=== PATIENT | male | born 1945 | race African-American/Black ===

== ENCOUNTER 2021-03-08 23:58 | Inpatient (IN) | payer MEDICARE, OTHER ==
[~2021-03-08] VITALS: Ht 180.3 cm; Wt 99.8 kg
[~2021-03-08 23:58] MED LIST: LISINOPRIL; [UNRECOGNIZED DRUG - REMARK]
[2021-03-09] MEDS ORDERED: MORPHINE SULFATE 4 MG/ML CPJ (NOT FOR IM USE) IV STA (00:26)
[2021-03-09] MEDS ORDERED: ONDANSETRON HCL 4MG/2ML INJ IV STA (00:26)
[2021-03-09 01:00] LABS: HEMATOCRIT. 45.7 % (42.0-52.0); HEMOGLOBIN. 15.3 g/dL (14.0-18.0); MEAN CORPUSCULAR VOLUME 92.4 fL (80.0-94.0); MEAN PLATELET VOLUME 8.1 fl (7.4-10.4); PLATELET 367 x1000/uL (130-400); RED BLOOD CELL COUNT 4.95 mill/uL (4.7-6.1)
[2021-03-09 01:04] LABS: CHLORIDE 106 mEq/L (98-107)
[2021-03-09 01:08] LABS: ETHANOL BLOOD < 10 mg/dL
[2021-03-09 01:11] LABS: BETA HYDROXYBUTYRATE 0.3 mMol/L (0.0-0.3)
[2021-03-09 01:34] LABS: CLARITY URINE CLEAR (CLEAR); COLOR URINE YELLOW (YELLOW); KETONES URINE NEGATIVE (NEGATIVE); LEUKOCYTE ESTERASE URINE NEGATIVE (NEGATIVE); NITRITE URINE NEGATIVE (NEGATIVE); OCCULT BLOOD URINE NEGATIVE (NEGATIVE); PROTEIN URINE TRACE (NEGATIVE); SPECIFIC GRAVITY URINE 1.019 (1.005-1.030); UROBILINOGEN URINE 0.2 E.U./dL (0.2-1.0)
[2021-03-09 02:56] LABS: PLATELET ESTIMATE NORMAL
[2021-03-09] MEDS ORDERED: HYDROMORPHONE HCL/PF 2MG/ML CPJ IV PRN (08:15)
[2021-03-09] MEDS ORDERED: ACETAMINOPHEN 650MG SUPP PR PRN (08:15)
[2021-03-09] MEDS ORDERED: ONDANSETRON HCL 4MG/2ML INJ IV PRN (08:15)
[2021-03-09] MEDS ORDERED: DEXTROSE 50% WATER 50ML SYRINGE IV PRN (09:00)
[2021-03-09] MEDS: DEXT 5%/0.45% NACL 1000ML 1,000 ML IV SCH ×2 (09:19→21:40)
[2021-03-09] MEDS: ENOXAPARIN 40MG/0.4ML SYR SUBCUT SCH (09:20)
[2021-03-09] MEDS: BLOOD SUGAR DIAGNOSTIC STRIP TEST SCH ×3 (11:30→21:35)
[2021-03-09] MEDS: INSULIN LISPRO 100 UNITS/ML SUBCUT SCH ×3 (14:49→21:00)
[2021-03-09] MEDS ORDERED: NALOXONE HCL 0.4MG/ML VIAL IV PRN (19:45)
[2021-03-09 21:25] VITALS: BP 174/70
[2021-03-09] MEDS ORDERED: GLIP10TA10 PO (23:43)
[2021-03-09] MEDS ORDERED: POTA10CA42 PO (23:43)
[2021-03-09] MEDS ORDERED: SEMA0.25 SQ (23:43)
[2021-03-09] MEDS ORDERED: TRAZ-251 PO (23:43)
[2021-03-09] MEDS ORDERED: METO-539 PO (23:43)
[2021-03-09] MEDS ORDERED: ATOR10TA69 PO (23:43)
[2021-03-09] MEDS ORDERED: INSU100I24 SQ (23:43)
[2021-03-09] MEDS ORDERED: GABA-290 PO (23:43)
[2021-03-09] MEDS ORDERED: LOSA50TA41 PO (23:43)
[2021-03-09] MEDS ORDERED: TRIC160 PO (23:43)
[2021-03-09] MEDS ORDERED: PANT40TA51 PO (23:43)
[2021-03-09] MEDS ORDERED: FURO40TA5 PO (23:43)
[2021-03-10] VITALS: BP 161/64
[2021-03-10 04:00] VITALS: BP 119/64
[2021-03-10] MEDS: BLOOD SUGAR DIAGNOSTIC STRIP TEST SCH ×4 (06:37→21:35)
[2021-03-10] MEDS: INSULIN LISPRO 100 UNITS/ML SUBCUT SCH ×4 (08:19→21:36)
[2021-03-10] MEDS: ENOXAPARIN 40MG/0.4ML SYR SUBCUT SCH (08:21)
[2021-03-10 08:26] VITALS: BP 133/52
[2021-03-10 09:40] LABS: BASOPHILS % 0.2 % (0.0-2.0); EOSINOPHILS % 0.8 % (0.0-5.0); HEMATOCRIT. 41.1 % (42.0-52.0); HEMOGLOBIN. 13.8 g/dL (14.0-18.0); LYMPHOCYTES % 35.8 % (20.0-50.0); MEAN CORPUSCULAR HEMOGLOBIN 31.2 pg (28.0-32.0); MEAN CORPUSCULAR VOLUME 92.8 fL (80.0-94.0); MEAN PLATELET VOLUME 8.5 fl (7.4-10.4); MONOCYTES % 13.5 % (2.0-8.0); NEUTROPHILS % 49.7 % (40.0-76.0); PLATELET 292 x1000/uL (130-400); RED BLOOD CELL COUNT 4.43 mill/uL (4.7-6.1); RED CELL DISTRIBUTION WIDTH 12.9 % (11.6-14.6)
[2021-03-10 09:46] LABS: CHLORIDE 106 mEq/L (98-107)
[2021-03-10] MEDS ORDERED: LACTULOSE 20G/30ML UDC PO NR (10:15)
[2021-03-10] MEDS: DEXT 5%/0.45% NACL 1000ML 1,000 ML IV SCH ×2 (10:36→21:36)
[2021-03-10] MEDS: DOCUSATE SODIUM 100MG CAPSULE PO SCH ×2 (10:36→17:00)
[2021-03-10 11:57] VITALS: BP 109/55
[2021-03-10 16:00] VITALS: BP 136/60
[2021-03-10 20:00] VITALS: BP 141/69
[2021-03-11] VITALS: BP 152/88
[2021-03-11 04:00] VITALS: BP 135/53
[2021-03-11] MEDS: BLOOD SUGAR DIAGNOSTIC STRIP TEST SCH ×2 (06:17→11:50)
[2021-03-11 08:00] VITALS: BP 158/57
[2021-03-11] MEDS: DOCUSATE SODIUM 100MG CAPSULE PO SCH (08:33)
[2021-03-11] MEDS: INSULIN LISPRO 100 UNITS/ML SUBCUT SCH ×2 (08:34→13:11)
[2021-03-11] MEDS: ENOXAPARIN 40MG/0.4ML SYR SUBCUT SCH (08:36)
[2021-03-11 12:03] VITALS: BP 145/53
[2021-03-11 12:41] VITALS: BP 145/53
[2021-03-11] MEDS: DEXT 5%/0.45% NACL 1000ML 1,000 ML IV SCH (13:35)
== END 2021-03-11 14:25 | disposition home health service (06) | DRG 388 ==
LOC: ER 23:58 → MICUSO 03-09 04:40 → EDBEDREQ 03-09 04:48 → EDBEDREQTM 03-09 04:48 → 6WST 03-09 20:18
PROVIDERS: ADMIT Hospitalist; ATTEND Hospitalist
DX: K56.7 Ileus, unspecified (principal); N17.0 Acute kidney failure with tubular necrosis; E87.2 Acidosis; E11.42 Type 2 diabetes mellitus with diabetic polyneuropathy; I11.0 Hypertensive heart disease with heart failure; I50.9 Heart failure, unspecified; Z79.4 Long term (current) use of insulin; Z90.49 Acquired absence of other specified parts of digestive tract; Z79.1 Long term (current) use of non-steroidal anti-inflammatories (NSAID); Z79.899 Other long term (current) drug therapy
CPT/HCPCS: 36415; 74018; 74176; 80053; 80320; 81003; 82010; 82962; 83036; 83605; 84484; 85025; 93005; 93970; 99285; J1170; J1650; J1815; J2270; J2405; G0480